=== PATIENT | male | born 1980 | race Caucasian/White ===

== ENCOUNTER 2019-03-14 09:49 | Emergency (ER) | payer OTHER ==
[~2019-03-14] VITALS: Ht 167.6 cm; Wt 70.8 kg
[~2019-03-14 09:49] MED LIST: PROZAC20 MG PO
[2019-03-14 09:52] VITALS: BP 134/84; Ht 167.6 cm; Wt 70.8 kg
[2019-03-14 12:05] LABS: microscopic required? NO
[2019-03-14 12:21] LABS: urine erythrocyte NEGATIVE (NEGATIVE)
== END 2019-03-14 13:18 | disposition home or self-care (01) ==
LOC: ED 09:49
PROVIDERS: Emergency Medicine
DX: N45.2 Orchitis (principal); N45.3 Epididymo-orchitis; K40.90 Unilateral inguinal hernia, without obstruction or gangrene, not specified as recurrent
CPT/HCPCS: 87491; 87591; J0696; J2270; J2405; J3010